=== PATIENT | female | born 1995 | race Caucasian/White ===

== ENCOUNTER 2020-08-29 03:11 | Emergency (ER) | payer OTHER ==
[~2020-08-29 03:11] MED LIST: AUGMENTIN 875-1 EACH PO; BENADRYL25 MG PO; IBUPROFEN800 MG PO; PENICILLIN V P250 M1 PO; PERCOCET 5-3251 EACH PO; PRENATAL FORMU1 EACH PO; PROTONIX 40MG T40 MG PO; ZOLOFT50 MG PO
== END 2020-08-29 06:33 | disposition home or self-care (01) ==
LOC: FER 03:11
DX: S93.401A Sprain of unspecified ligament of right ankle, initial encounter (principal); F17.210 Nicotine dependence, cigarettes, uncomplicated; Z86.14 Personal history of Methicillin resistant Staphylococcus aureus infection; W17.89XA Other fall from one level to another, initial encounter; Y92.009 Unspecified place in unspecified non-institutional (private) residence as the place of occurrence of the external cause
CPT/HCPCS: 73610

== ENCOUNTER 2020-11-26 22:13 | Emergency (ER) | payer OTHER ==
[2020-11-26 23:15] LABS: BILIRUBIN NEGATIVE (NEGATIVE); BLOOD 2+ Ery/uL (NEGATIVE); CLARITY CLEAR (CLEAR); COLOR YELLOW (YELLOW); GLUCOSE (U) NORMAL (NORMAL); LEUKOCYTES TRACE Leu/uL (NEGATIVE); NITRITE NEGATIVE (NEGATIVE); PROTEIN NEGATIVE (NEGATIVE); UROBILINOGEN 0.2 mg/dL (0.2-1.0); pH 7.5 (5.0-9.0)
[2020-11-26 23:20] LABS: MARIJUANA (THC) POSITIVE (NEGATIVE)
[2020-11-26 23:21] LABS: AMPHETAMINES POSITIVE (NEGATIVE); BARBITURATES NEGATIVE (NEGATIVE); ECSTASY (MDMA) NEGATIVE (NEGATIVE); METHADONE NEGATIVE (NEGATIVE); OPIATES NEGATIVE (NEGATIVE); OXYCODONE NEGATIVE (NEGATIVE)
[2020-11-26 23:29] LABS: BACTERIA 1+
[2020-11-26 23:45] LABS: BASOPHIL 0.5 % (0-2); EOSINOPHIL 0.9 % (0-5); HCT 41.7 % (37.0-47.0); HGB 13.9 g/dl (12.5-16.0); LYMPHOCYTE 24.4 % (15-48); MCH 28.7 pg (25.0-31.0); MCHC 33.3 g/dL (32.0-36.0); MONOCYTE 5.9 % (0-12); MPV 11.2 fL (6.0-9.5); NEUTROPHIL 68.1 % (41-80); NRBC 0; PLT 287 K/uL (150-400); RBC 4.85 M/uL (4.20-5.40); RDW 14.4 % (11.5-14.0); WBC 8.8 K/uL (4.0-10.5)
[2020-11-27] LABS: ALBUMIN 3.7 g/dL (3.4-5.0); BILIRUBIN - TOTAL 0.2 mg/dL (0.2-1.0); BUN/CREAT RATIO (CALC) 11.4 RATIO; CREATININE 0.79 mg/dL (0.51-0.95); GLOBULIN (CALCULATION) 3.8 g/dL; TOTAL PROTEIN 7.5 g/dL (6.4-8.2)
== END 2020-11-27 02:33 | disposition home or self-care (01) ==
LOC: FER 22:13
PROVIDERS: Emergency Medicine Emergency Medical Services
DX: R07.89 Other chest pain (principal); F15.929 Other stimulant use, unspecified with intoxication, unspecified; F17.210 Nicotine dependence, cigarettes, uncomplicated
CPT/HCPCS: 36415; 71045; 80053; 80305; 81001; 84484; 85025; 93005; J1885; J2060; J7030

== ENCOUNTER 2021-05-28 18:06 | Emergency (ER) | payer OTHER ==
[2021-05-28] MEDS ORDERED: NARCAN IN (18:44)
== END 2021-05-28 20:40 | disposition home or self-care (01) ==
LOC: FER 18:06
DX: T40.1X1A Poisoning by heroin, accidental (unintentional), initial encounter (principal); R41.82 Altered mental status, unspecified; F17.200 Nicotine dependence, unspecified, uncomplicated
CPT/HCPCS: 99285